=== PATIENT | male | born 1950 | race Caucasian/White ===

== ENCOUNTER 2016-12-17 12:36 | Inpatient (IN) | payer MEDICARE, OTHER ==
[~2016-12-17] VITALS: Ht 167.6 cm; Wt 67.0 kg
[2016-12-17 12:54] VITALS: BP 125/83; PULSE 97; RESP 16; O2SAT 96
--- NOTE | 2016-12-17 12:57 | ED.REPORT ---
HPI-Abd Pain M 40 and Over Date of Service Dec 17, 2016 ED Provider: Aaron Garcia MD A 66 year old male with a history of liver cancer with chronic liver failure presents to the ED complaining of abdominal distention. This distention is due to fluid buildup, which is common for the pt, and is resulting in abdominal pain and shortness of breath. His last paracentesis was three days ago and he had another three days prior to that. Five liters were taken off during each of these sessions, but this was never enough to fully resolve the distention. He denies fever, vomiting, diarrhea or constipation. The pt was instructed by his GI specialist to come to the ED today for another paracentesis. He is scheduled to have a drainage tube placed in one week. Nursing Notes Stated Complaint: STOMACH FLUID BUILD UP Chief Complaint: General Complaint Nursing Notes Reviewed: Yes Allergies: Coded Allergies: Penicillins (Verified Allergy, Severe, Anaphylaxis, 04/17/15) codeine (Verified Allergy, Severe, Anaphylaxis, 04/17/15) Scheduled Furosemide (Furosemide) 40 Mg Tablet 40 MG PO QAM Spironolactone (Spironolactone) 100 Mg Tablet 100 MG PO QAM Scheduled PRN Albuterol Sulfate (Ventolin HFA Inhaler) 200 Puff/18 Gm Inhaler 1-2 PUFFS INHALATION QID PRN PRN For Shortness of Breath General Time Seen by MD: 12:56 Chief Complaint Other (Abdominal distention) Hx Obtained From: Patient Arrived By: Walk-in Sudden in Onset?: No Onset Occurred: 3 days ago Symptom Duration: Since onset Recent Healthcare: No recent doctor visit, No recent hospitalization Similar Sx Previous: No Past Medical History Past Medical History liver cancer with chronic liver failure Past Surgical History paracentesis right leg fracture repair left foot fracture repair Reports: Appendectomy Smoking History Former Smoker Social History Other Social History: Good social support Ambulatory Status Independent Review of Systems Review of Systems Note: abdominal distention Constitutional: Denies: Fever Respiratory: Reports: Shortness of breath, Denies: Non-productive cough Cardiovascular: Denies: Chest pain GI: Reports: Abdominal pain, Denies: Constipation, Diarrhea, Nausea, Vomiting Musculoskeletal: Denies: Back pain, Neck pain Complete sys rev & neg: except as marked. Skin: Denies Rash Physical Exam Initial Vital Signs Vital Signs (First) Date Time Temp Pulse Resp B/P Pulse Ox O2 Delivery O2 Flow Rate FiO2 12/17/16 12:54 36.2 97 16 125/83 96 Room Air Initial VS: Reviewed General/Constitutional: Awake, Alert Respiratory / Chest: Atraumatic, Breath sounds NL, Breath sounds = bilat, No respiratory distress Cardiovascular: Heart rate NL, Regular rhythm, Heart sounds NL Abdomen: Atraumatic, Soft positive fluid wave distended abdomen Back: Atraumatic, Full range of motion Head / Eyes: Atraumatic, Normocephalic, PERRL, EOMI ENT: Atraumatic, Airway patent, Mucous membranes moist Skin: Atraumatic, Color NL, No rash, Warm, Dry Neurologic: Oriented X3, Speech NL, No motor deficits, No sensory deficits Neck: Atraumatic, Supple, Full range of motion Upper Extremity / MS: Atraumatic, Full range of motion Lower Extremity / Pelvis / MS: Atraumatic, Full range of motion Psychiatric: Affect NL, Mood NL Interpretation & Diagnostics Lab Results Interpretation Result Diagram: 12/17/16 1327 12/17/16 1605 Test 12/17/16 13:27 12/17/16 14:18 12/17/16 15:23 White Blood Count 15.4th/mm3 (3.8-10.1) Red Blood Count 4.82mil/mm3 (4.40-5.80) Hemoglobin 16.1g/dL (13.8-17.2) Hematocrit 45.6% (41.0-50.0) Mean Corpuscular Volume 94.6fL (81-100) Mean Corpuscular Hemoglobin 33.4pg (27.0-35.0) Mean Corpuscular Hemoglobin Concent 35.3% (32.0-37.0) Red Cell Distribution Width 14.9% (12.3-15.4) Platelet Count 203bil/L (150-400) Neutrophils (%) (Auto) 84.8% (40-74) Lymphocytes (%) (Auto) 3.0% (14-46) Monocytes (%) (Auto) 10.9% (4-12) Eosinophils (%) (Auto) 0.4% (0-5) Basophils (%) (Auto) 0.1% (0-3) Prothrombin Time 14.4sec (8.1-12.5) Prothromb Time International Ratio 1.34ratio Hold Cho Top Tube Received (Received) Body Fluid Source Peritoneal fluid Body Fluid Color Yellow (Clear) Body Fluid Appearance Hazy Body Fluid WBC 870/mm3 Body Fluid RBC 340/mm3 Body Fluid Polynuclear WBCs 56% Body Fluid Lymphocytes 0% Body Fluid Monocytes 20% Body Fluid Eosinophils 0% Body Fluid Basophils 0% Body Fluid Albumin 0.3g/dL (.) Total Bilirubin 2.8mg/dL (0.0-1.2) Aspartate Amino Transf (AST/SGOT) 104U/L (0-50) Alanine Aminotransferase (ALT/SGPT) 95U/L (0-44) Alkaline Phosphatase 338U/L (25-160) Total Protein 7.2g/dL (6.4-8.4) Albumin 3.0g/dL (3.4-5.0) Lipase 72U/L (13-60) Procedures Paracentesis 13:58 ED physician informed consent provided by pt, time-out performed, hand hygiene observed, sterile stand technique Chlorhexidine Lidocaine 1% RLQ draining clear yellow fluid 4L drained hemodynamically stable condition improved, tolerated procedure well, pt stable Re-Eval/Medical Decision Med Decision/Clinical Course 66-year-old male history of liver cancer and hepatitis C cirrhosis presenting with abdominal pain and ascites. Paracentesis was performed consistent with SBP. Patient will be admitted for IV antibiotics. Discussed with GI Dr. Brennan who agrees with admission with cefotaxime for iv abx. Potassium 5.8, asymptomatic with no EKG changes. Admitted to hospital. Source of Hx: Old records Time of Eval: 13:58 Patient Status: Condition improved Re-Evaluation/Progress Note: Pt rechecked and paracentesis procedure is performed. The pt tolerated well and there are no complications. Time of Eval: 15:14 Patient Status: Condition improved Re-Evaluation/Progress Note: Pt rechecked, who is resting comfortably. The diagnosis and need for admission are discussedd. The pt understands and agrees with the plan. All questions are addressed at this time. Consultation #1: Referral / Consult Name: David Brennan MD Call Returned at: 14:43 Business Services Intern: Agrees with eval, Agrees with plan Note: Consulted with Dr. Brennan, GI, regarding pt's case. Dr. Bernnan recommends GI follow up next week. Consultation #2: Consulted With: Hospitalist Business Services Intern: Agrees with eval, Agrees with plan, Accepts admit Counseled Regarding: Diagnosis, Lab results, Need for admission Discharge & Departure Primary Impression: Spontaneous bacterial peritonitis Additional Impression: Hyperkalemia Disposition: ADMITTED TO HOSPITAL Vital Signs - All Vital Signs Date Time Temp Pulse Resp B/P Pulse Ox O2 Delivery O2 Flow Rate FiO2 12/17/16 12:54 36.2 97 16 125/83 96 Room Air )( All Prior VS Reviewed: Yes Condition: Stable Referrals: Christopher Galeas MD (PCP) Scribe Attestation Portions of this note were transcribed by Laurel Valenzuela. I, Dr. Garcia personally performed the history, physical exam and medical decision-making; I reviewed and confirmed the accuracy of the information in the transcribed note. copies to: Christopher Galeas MD, Ben M MD Dec 17, 2016 12:57 LAUREL VALENZUELA Dec 17, 2016 13:38
[2016-12-17 13:39] LABS: BASOPHILS % (AUTO) 0.1 % (0-3); EOSINOPHILS % (AUTO) 0.4 % (0-5); MONOCYTES % (AUTO) 10.9 % (4-12); Mean Corpuscular Hemoglobin 33.4 pg (27.0-35.0); Mean Corpuscular Volume 94.6 fL (81-100); NEUTROPHILS % (AUTO) 84.8 % (40-74); Platelet Count 203 bil/L (150-400)
[2016-12-17 13:49] LABS: INR 1.34 ratio
[2016-12-17 14:28] LABS: INR 1.34 ratio
[2016-12-17 15:13] LABS: BFWBC 870 /mm3
[2016-12-17 15:17] LABS: MONOCYTES,BODY FLUID 20 %
[2016-12-17 15:18] LABS: OTHER CELLS,BODY FLUID 24
[2016-12-17] MEDS ORDERED: Cefotaxime Inj 2,000 MG in Dextrose 5% 100 ML IV ONE (15:30)
--- NOTE | 2016-12-17 15:34 | PCM.HPMED ---
Subjective Date of Service Dec 17, 2016 Primary Provider: Admitting Physician: Primary Care Physician: Christopher Galeas MD Attending Physician: Chief Complaint: Abdominal pain History of Present Illness: Patient with past medical history hepatocellular carcinoma, ascites, frequent paracentesis presented to the emergency department with abdominal pain.He underwent paracentesis which showed yellow hazy peritoneal fluid. 870 WBC, 56% of the nuclear WBC. Patient was diagnosed with SBP. He was started on cefotaxime IV. GI was consulted by ED physician. Review of Systems: REVIEW OF SYSTEMS: GENERAL: no malaise, no fevers., SEE HPI HEENT: Negative for frequent or significant headaches All other reviewed and negative other than HPI. Allergies Coded Allergies: Penicillins (Verified Allergy, Severe, Anaphylaxis, 04/17/15) codeine (Verified Allergy, Severe, Anaphylaxis, 04/17/15) PMH Hepatocellular carcinoma Surgical History Appendectomy, Colonoscopy Family History DM II, Heart problems Social History Hx Alcohol Use: Yes (quit 32 years ago) Hx Substance Use: No Hx Tobacco Use: Yes (quit 32 years ago ) Smoking Status: Former Smoker Exam Vital Signs Vital Sign - Last Date Time Temp Pulse Resp B/P Pulse Ox O2 Delivery O2 Flow Rate FiO2 12/17/16 12:54 36.2 97 16 125/83 96 Room Air Exam GENERAL: Alert, not in distress, cooperative HEAD: atraumatic, normocephalic, no bruises. EYES: AMNA, EOMI, icteric, able to fully open and close eyelids SKIN: Skin color normal, turgor normal. No visible rashes or lesions. EAR, NOSE, MOUTH, THROAT: Lips, oral mucosa, tongue gums, oropharynx are moist , pink, no lesions. Ears normal appearance, no lesions. NECK: no jugulovenous distention; supple ROM normal. RESPIRATORY: Lungs clear to auscultation. Good diaphragmatic excursion. CARDIAC: normal S1 and S2; no rubs, murmurs, or gallops; regular rate and rhythm ABDOMEN: Abdomen soft, tender. BS normal. No masses or organomegaly. MUSCULOSKELETAL: ROM full, muscles are not tender EXTREMITIES: no pitting edema in LE, no new deformities or skin discoloration. NEURO: Alert, oriented X 3, Sensation grossly intact., Cranial nerves II-XII intact, Grossly normal motor function. PULSES: 2+ radial, 2+ carotid Lab and Diagnostics Result Diagram: 12/17/16 1327 Assessment & Plan This is a 66-year-old male with a past medical history of hepatocellular carcinoma, ascites, frequent paracentesis presented to the emergency department with abdominal pain. She had paracentesis. Total fluid showed white blood cell count about 800. CBC showed leukocytosis. The patient was tachycardic 98 /minute Sepsis present on admission. SBP. Hepatocellular carcinoma. - Stable - GI was consulted by ED physician Plan - Continue with antibiotics, IV fluids Hyperkalemia 5.8 - patient is on Spironolactone , he had high potassium intake recently in form of potato and fruits. - repeat potassium level Hyponatremia 131 - mild - monitor DVT PROPHYLAXIS: Sequential compression devices Code status: Patient would like to be full code Disposition: discharge after patient improves. Plan of care discussed with ED physician; Labs, radiology tests reviewed. Plan of care, medication side effects, home medication, diagnostic procedures and available alternatives were discussed and reviewed with patient. All questions answered. Patient verbalized understanding, approved and agreed to plan of care. VTE Prophylaxis: SCDs Resuscitation Status: CPR: Attempt Resuscitation Anupam Coronado MD Dec 17, 2016 15:34
[2016-12-17] MEDS ORDERED: Alum-Mag Hydrox-Simeth 30 mL Suspension PO PRN (15:40)
[2016-12-17] MEDS ORDERED: 0.9% Sodium Chloride 1,000 ML IV ONE (15:42)
[2016-12-17] MEDS: 0.9% Sodium Chloride 1,000 ML IV SCH (16:05)
[2016-12-17] MEDS ORDERED: Polyethylene Glycol (PEG) 17 Gm Powder PO PRN (16:05)
[2016-12-17] MEDS ORDERED: Cefotaxime Inj 2,000 MG in Dextrose 5% 100 ML IV SCH (16:30)
[2016-12-17 16:35] VITALS: BP 125/74; PULSE 87; RESP 18; O2SAT 97
[2016-12-17 16:45] VITALS: BP 110/78; PULSE 90; RESP 16; O2SAT 98
[2016-12-17] MEDS: cefTRIAXone 2,000 mg/D5W 50 mL IV Minibag Plus IV SCH ×2 (17:00)
[2016-12-17 17:08] LABS: APPEARANCE,URINE CLEAR (CLEAR,HAZY); COLOR,URINE DARK YELLOW (YELLOW); OCCULT BLOOD,URINE NEGATIVE (NEGATIVE); PH,URINE 5.5 (5.0-8.0); UROBILINOGEN,URINE NORMAL (NORMAL)
[2016-12-17 17:16] VITALS: BP 125/74; PULSE 87; RESP 18; O2SAT 97
[2016-12-17] MEDS ORDERED: ALBU18HF INHALATION (17:21)
[2016-12-17] MEDS ORDERED: FURO40TA4 PO (17:21)
[2016-12-17] MEDS ORDERED: SPIR100T3 PO (17:21)
[2016-12-17 20:30] VITALS: BP 110/74; PULSE 86; RESP 16; O2SAT 94
[2016-12-18 00:39] VITALS: BP 119/79; PULSE 89; RESP 16; O2SAT 97
[2016-12-18] MEDS: 0.9% Sodium Chloride 1,000 ML IV SCH (01:42)
--- NOTE | 2016-12-18 05:00 | NUR ---
No Issues to Report Patient slept throughout this shift. No Rx medications ordered and/or given. Remains on IV N/S at 100 Ml/hr. Independent to restroom. No report of pain except that the bed was hard on his back. VSS, No telemetry, RA, Negative SOB and is in good spirits. WCTM
[2016-12-18 06:00] VITALS: BP 125/84; PULSE 82; RESP 16; O2SAT 94
[2016-12-18 08:46] LABS: Mean Corpuscular Hemoglobin 33.2 pg (27.0-35.0)
[2016-12-18 09:00] VITALS: BP 120/84; PULSE 86; RESP 16; O2SAT 96
--- NOTE | 2016-12-18 09:28 | PCM.PNMED ---
Subjective Date of Service Dec 18, 2016 Subjective Patient is in bed, complaining of some mild abdominal pain. Overall feels better. Leukocytosis present but improving Exam Vital Signs Vital Sign - Last Date Time Temp Pulse Resp B/P Pulse Ox O2 Delivery O2 Flow Rate FiO2 12/18/16 09:00 36.4 86 16 120/84 96 Room Air Intake and Output 12/17/16 12/17/16 12/18/16 Cumulative From/Thru 15:00 23:00 07:00 12/17/16 12:54 - 12/18/16 06:00 Intake Total 1600 ml 448 ml 2048 ml Balance 1600 ml 448 ml 2048 ml Intake IV Total 1600 ml 448 ml 2048 ml # Voids 3 3 Exam GENERAL: Alert, not in distress HEAD: atraumatic, normocephalic, no bruises. EYES: EOMI, icteric, able to fully open and close eyelids SKIN: Skin icteric. No visible rashes or lesions. EAR, NOSE, MOUTH, THROAT: Lips, oral mucosa, tongue are moist, pink, no lesions. Ears normal appearance, no lesions. NECK: no jugulovenous distention; supple ROM normal. RESPIRATORY: Lungs clear to auscultation. Good diaphragmatic excursion. CARDIAC: normal S1 and S2; no rubs, murmurs, or gallops; regular rate and rhythm ABDOMEN: Abdomen soft, tender. BS normal. No masses or organomegaly. MUSCULOSKELETAL: ROM full, muscles are not tender EXTREMITIES: no pitting edema in LE, no new deformities or skin discoloration. NEURO: Alert, oriented X 3, Cranial nerves II-XII intact, Grossly normal motor function. PULSES: 2+ radial, 2+ carotid REVIEW OF SYSTEMS: GENERAL: no malaise, no fevers., SEE HPI HEENT: Negative for frequent or significant headaches All other reviewed and negative other than HPI. IVs and Medications Medications Reviewed: Medications were reviewed in detail Lab and Diagnostics Result Diagram: 12/18/16 0820 12/17/16 1606 Assessment & Plan This is a 66-year-old male with a past medical history of hepatocellular carcinoma, ascites, frequent paracentesis presented to the emergency department with abdominal pain. She had paracentesis. Total fluid showed white blood cell count about 800. CBC showed leukocytosis. The patient was tachycardic 98 /minute Sepsis present on admission. SBP. Hepatocellular carcinoma. - Stable - GI was consulted by ED physician Plan - Continue with antibiotics, IV fluids Hyperkalemia - Improving - repeat potassium level , hold spironolactone Hyponatremia - mild - monitor DVT PROPHYLAXIS: Sequential compression devices Code status: Patient would like to be full code Disposition: discharge after patient improves. Plan of care discussed with ED physician; Labs, radiology tests reviewed. Plan of care, diagnostic procedures and available alternatives were discussed and reviewed with patient. All questions answered. Patient verbalized understanding, approved and agreed to plan of care. VTE Prophylaxis: SCDs Resuscitation Status: CPR: Attempt Resuscitation Anupam Coronado MD Dec 18, 2016 09:28
[2016-12-18] MEDS ORDERED: Albumin 25% 25 GM in IV Premix 1 EACH IV ONE (12:05)
--- NOTE | 2016-12-18 12:37 | NUR ---
Social Work: Initial Assessment Data: See initial assessment. Patient is a 66 year old male who was admitted on 12/17/16 for SBP per H&P. Patient's insurance is Medicare and [facility]. Patient's PCP is Christopher Galeas MD. EMR reviewed. SW met with patient to discuss discharge planning. SW role explained. Patient states that he lives alone in [place]. Patient considers his God-daughter Kym to be in main support person. Patient states that his DPOA is his sister Linda Daniels and states that his AD are in the process of being completed. Patient states that he is I at baseline and is able to perform all ADLs and care needs. Patient denies a hx of home health services or SNF. Patient denies having penitentiary care insurance or VA benefits. Patient states that upon discharge his sister Kym will transport him home. SW provided patient with a discharge planning checklist booklet and encouraged to call with any questions or concerns. Phone number provided. SW will continue to follow. Assessment: Patient will likely discharge home when medically stable. Plan: Patient will likely discharge home when medically stable. Transportation will be provided by patient's sister Kym. SW will continue to follow. HIEU Gallagher Addendum: 12/18/16 at 1319 by SARIKA ARNOLD Amended: Links added.
[2016-12-18 13:00] VITALS: BP 116/79; PULSE 81; RESP 16; O2SAT 97
--- NOTE | 2016-12-18 15:48 | NUR ---
Shift Note Patient had continued back pain today, treated with heating pad and ibuprofen. Many family visitors. Dr. Coronado at around noon to answer daughter and patients' questions regarding his stay and next steps for a semi-permanent drainage tube for ascitic drainage. No abdominal discomfort today. Good appetite, up independently, had a shower. Waiting for GI consult for next steps regarding tube placement.
[2016-12-18 18:09] VITALS: BP 107/78; PULSE 88; RESP 16; O2SAT 96
[2016-12-18 20:30] VITALS: BP 119/81; PULSE 80; RESP 16; O2SAT 96
[2016-12-18] MEDS: cefTRIAXone 2,000 mg/D5W 50 mL IV Minibag Plus IV SCH ×2 (21:15)
[2016-12-19] VITALS (7 sets, daily range): BP systolic 106–126; BP diastolic 64–84; PULSE 76–88; RESP 16–18; O2SAT 94–96
--- NOTE | 2016-12-19 01:40 | CONS ---
[address] [address] CONSULTATION REPORT PATIENT: BELKIS RICHARDS : 1950 MR#: [id number] ADMIT: 12/17/2016 JOB ID: [id number] DATE OF SERVICE: 12/18/2016 REQUESTING PROVIDER: Anupam Coronado MD REASON FOR CONSULTATION: SBP. HISTORY OF PRESENT ILLNESS: This is a 66-year-old male with hepatitis C (treated), cirrhosis, who developed hepatocellular carcinoma which was diagnosed in 2013. He was evidently deemed nonsurgical at that time and was treated with Yttrium-90 therapy through the [facility] down at the [facility]. Around August of this year, he was found to have recurrence of hepatoma and experienced further Y-90 therapy. Prior to that time, he never had any difficulty with portal hypertension or ascites. Over the last 3-4 months, he has had increasing difficulty with ascites. He was recently evaluated once again in Oncology Clinic with Dr. Bateman, who started him on some diuretics and referred the patient over to our clinic for further management. The patient did not make his appointment as he was taken to the emergency department on Tuesday by his daughter secondary to increasing amounts of ascites and abdominal pain which had occurred in spite of two prior paracenteses of about 5 L each going back to December 09. He actually called our office on Tuesday morning for advice based on his symptoms. We had routed him through to the emergency department. In the ED, he had a paracentesis that was accomplished and demonstrated a clear-cut case of SBP. Blood cultures have actually even grown out E. coli. He was commenced on Rocephin here in the hospital. The ED indicated to me that Dr. Brennan had been consulted. Dr. Brennan did provide treatment guidance through to the ED, but was not aware that he had actually been formally consulted. I therefore received a call earlier today from Dr. Bo, as he was wondering where the official GI consultation note was. We briefly discussed the patient by telephone and I have recommended that he, in addition to the IV antibiotics, receive a 1.5 g/kg dose of IV albumin, which looks like was accomplished today. Overall, the patient is feeling a little better. He has been afebrile here in the hospital. REVIEW OF SYSTEMS: The patient has lost weight in recent months. Appetite is a little reduced but not much in the way of significant early satiety. Denies any nausea or vomiting. Bowels have been fairly regular apart from a little more loose since starting diuretics in recent weeks. He has not maintained a low-sodium diet. He has continued to add salt to food. He denies any mental confusion or symptoms of hepatic encephalopathy. There have been no symptoms of GI bleeding. I was able to speak by telephone with the patient's daughter, Kym, and her main concern was the increase in difficulty breathing that her dad would recurrently get with accumulation of the ascites. She indicated they were wondering about a PleurX catheter. Otherwise, his review is negative at this time. ALLERGIES: PCN and Codeine MEDICATIONS: Lasix, spironolactone, Ventolin. PAST MEDICAL HISTORY: Colon polyps, hemorrhoids, treated hepatitis C, cirrhosis, hepatocellular carcinoma. PAST SURGICAL HISTORY: Appendectomy. FAMILY HISTORY: Noncontributory. 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 He denies any alcohol or tobacco use. His daughter, Kym, is in town from [place]. PHYSICAL EXAMINATION: Skin warm and dry. Alert, oriented, appropriate, cooperative. No asterixis. Heart regular. No significant lower extremity peripheral pitting edema. Lungs clear bilaterally. Good respiratory movement, more so when he is in a seated position. Abdomen is full. I did not appreciate any guarding at present. He clearly has had recurrence of large volume of ascites. IMAGING: CT chest, abdomen, and pelvis on December 07 is noted. He did not have any significant pleural effusions at that time. He did have what was described as pulmonary emphysema. Cirrhosis with stable hepatocellular carcinoma compared to his prior CT was commented on. He had a marked amount of ascites and he had gallstones. LABORATORY DATA: White count was initially 15.4 with left shift. It is down to 12.7 today. Hematocrit 43.6, platelets were 152. His INR was 1.34 yesterday. Albumin was 3.0, lipase 72, bilirubin 2.8, AST 104, ALT 95, alk phos 338. Sodium 131, potassium 5.8, chloride 92, bicarb 21, BUN 32, creatinine 1.14, glucose 129, calcium 9.5. Today, creatinine is down to 0.85. Sodium is still 131. Peritoneal fluid is as described above. Urinalysis was unremarkable. Blood cultures positive for E. coli. ASSESSMENT AND RECOMMENDATIONS: This is a 66-year-old male with hepatitis C related cirrhosis, complicated by inoperable hepatocellular carcinoma that has recurred since the original diagnosis in 2013. He has developed significant portal hypertension and now has developed spontaneous bacterial peritonitis. It is difficult to determine whether infection was seated by the prior two paracenteses or not. At any rate, I have recommended cefotaxime 2 g every 8 hours. I would recommend the ceftriaxone be switched over to the cefotaxime as ceftriaxone has an increased risk for developing biliary sludge. In that the patient already has gallstones, I do not think this is a great antibiotic in his case. He has received the IV albumin, which based on his initial BUN and creatinine, would be quite appropriate. I would recommend a 1 g/kg dose of albumin be given on Tuesday. He will need five total days of IV antibiotic therapy. I have discontinued the ibuprofen. Not only can Y-90 treatment sometimes create significant portal hypertension, as seems to be the case in the patient, there have been cases of quite significant gastroduodenal ulceration, and therefore, nonsteroidal anti-inflammatory drugs (NSAIDs) would not be a great planned in his situation here. I would recommend he be compliant with a 2 g sodium diet. This is not easy to do in the hospital, unfortunately, but I have educated the patient and his daughter on the importance of this diet and written orders to nursing to help with compliance. It is great that his creatinine has come down slightly. His ascites is rather large again, and I think his diuretics ought to be restarted. I would recommend another therapeutic paracentesis tomorrow quite possibly. Daily ins and outs and weights should be followed. He should also have a daily CBC, CMP and a PT/INR to follow his MELD score. His MELD score at presentation was 20. For the time being. I would not be in favor of the PleurX catheter. I think that the patient would need to definitely demonstrate failure of conventional therapy, which would include dietary sodium restriction as outlined above, plus escalated diuretic dosing if need be. Even in that scenario, I would still have him follow up with his Interventional Radiologist in [place] to discuss the feasibility of a transjugular intrahepatic portosystemic shunt (TIPS) in that scenario. Hepatoma is considered a relative contraindication, but typically more so when it is a centralized tumor. I would like to see him on PPI prophylaxis here in the hospital. Long-term, he will be indicated for a single double-strength Bactrim daily as prophylaxis against spontaneous bacterial peritonitis (SBP) when ultimately discharged. Dr. Pedraza will be fraud prevention analyst for the GI service tomorrow, Tuesday. I plan to pick the patient's case back up again on Tuesday. My cell phone is [phone] if there are any questions or concerns. JOHNNY
--- NOTE | 2016-12-19 04:41 | NUR ---
Doctor Visit Dr. Lowry came by last night to talk to patent regarding the patients questions and concerns. discontinued Motrin because he did fell the patient should be taking it with his Dx. Also ordered a no more that 2 Grams of sodium QD. Plus update the MAR with patients Rx medications. Pt. to continue on IV ABO. Pt. VSS, RA, SL, Independent to restroom and in good spirits. TM
[2016-12-19] MEDS: Pantoprazole 20 mg ER24 Tablet PO SCH (08:13)
[2016-12-19 08:28] LABS: Mean Corpuscular Hemoglobin 33.2 pg (27.0-35.0); Mean Corpuscular Volume 94.2 fL (81-100)
--- NOTE | 2016-12-19 11:09 | NUR ---
Case Management: Imm given and explained to pt and daughter, Kym. Sara HOLT, RN
--- NOTE | 2016-12-19 11:37 | NUR ---
Home Med/Inhaler Patient and patient's daughter made RN aware that he normally uses an inhaler at home that helps with his "clogged ear". I told them I would add this medication to his home medication list and speak with Dr. Coronado about adding this medication. Spoke with Dr. Coronado about adding this medication, MD stated being aware the patient does use the inhaler and stated this could be added if it helps with patient's "clogged ear". Verbal order given.
[2016-12-19] MEDS ORDERED: Albuterol 2.5 mg/3 mL Inhalation Solution NEB ONE (12:37)
--- NOTE | 2016-12-19 12:58 | PCM.PNMED ---
Subjective Date of Service Dec 19, 2016 Subjective Patient feels the same today. Complaining of distended abdomen. Patient does not want to have paracentesis today he would like to have it tomorrow. Exam Vital Signs Vital Sign - Last Date Time Temp Pulse Resp B/P Pulse Ox O2 Delivery O2 Flow Rate FiO2 12/19/16 12:47 88 18 96 Room Air 12/19/16 10:15 36.5 124/84 Intake and Output 12/18/16 12/18/16 12/19/16 Cumulative From/Thru 15:00 23:00 07:00 12/17/16 12:54 - 12/19/16 06:15 Intake Total 50 ml 400 ml 2498 ml Balance 50 ml 400 ml 2498 ml Intake Oral 400 ml 400 ml IV Total 50 ml 2098 ml # Voids 3 2 2 10 # Bowel Movements 1 1 Exam GENERAL: Alert, not in distress HEAD: normocephalic, no bruises. EYES: EOMI, anicteric, able to fully open and close eyelids SKIN: Skin color normal, turgor normal. No visible rashes EAR, NOSE, MOUTH, THROAT: Lips, oral mucosa, tongue are moist, pink, no lesions. Ears normal appearance, no lesions. NECK: no jugulovenous distention; supple ROM normal. RESPIRATORY: Lungs clear to auscultation. Good diaphragmatic excursion. CARDIAC: normal S1 and S2; no rubs, murmurs, or gallops; regular rate and rhythm ABDOMEN: Abdomen soft, non-tender, distended. BS normal. MUSCULOSKELETAL: ROM full, muscles are not tender EXTREMITIES: no pitting edema in LE, no new deformities or skin discoloration. NEURO: Alert, oriented X 3, Sensation grossly intact., Cranial nerves II-XII intact, Grossly normal motor function. PULSES: 2+ radial, 2+ carotid REVIEW OF SYSTEMS: GENERAL: no malaise, no fevers., SEE HPI HEENT: Negative for frequent or significant headaches All other reviewed and negative other than HPI. Lab and Diagnostics Result Diagram: 12/19/1680412/19/16920 Assessment & Plan This is a 66-year-old male with a past medical history of hepatocellular carcinoma, ascites, frequent paracentesis presented to the emergency department with abdominal pain. She had paracentesis. Total fluid showed white blood cell count about 800. CBC showed leukocytosis. The patient was tachycardic 98 /minute Sepsis present on admission. SBP. Hepatocellular carcinoma. - Improving - GI was consulted by ED physician, recommended to continue with cefotaxime, albumin, paracentesis, no NSAIDs, resume Lasix and spironolactone, low-salt diet Plan - Continue with IV antibiotics, albumin as needed - Monitor electrolytes for hyperkalemia - Paracentesis as needed Hyperkalemia - Improved - Monitor this patient is again back on spironolactone Hyponatremia - Worsening - monitor DVT PROPHYLAXIS: Sequential compression devices Code status: Patient would like to be full code Disposition: discharge after patient improves. Plan of care discussed with treatment team; Labs, radiology tests reviewed. Plan of care, diagnostic procedures and available alternatives were discussed and reviewed with patient. All questions answered. Patient verbalized understanding, approved and agreed to plan of care. VTE Prophylaxis: SCDs Resuscitation Status: CPR: Attempt Resuscitation Anupam Coronado MD Dec 19, 2016 12:58
--- NOTE | 2016-12-19 13:10 | NUR ---
Ear Congestion Contacted Dr. Coronado via [employer] page, informed him patient continues to report ear congestion. Patient now reports inhaler and nebulizer has not worked, though inhaler was working earlier to clear the congestion per patient. This RN asked MD if an oral decongestant would be appropriate for this patient. Awaiting MD response.
--- NOTE | 2016-12-19 15:51 | PCM.PNMED ---
Subjective Date of Service Dec 19, 2016 Subjective no complaints other than abdominal bloating no abdominal pain, nausea or vomiting mild shortness of breath with ambulation Exam Vital Signs Vital Sign - Last Date Time Temp Pulse Resp B/P Pulse Ox O2 Delivery O2 Flow Rate FiO2 12/19/16 14:03 36.4 76 16 111/78 96 Room Air Intake and Output 12/18/16 12/18/16 12/19/16 Cumulative From/Thru 15:00 23:00 07:00 12/17/16 12:54 - 12/19/16 06:15 Intake Total 50 ml 400 ml 2498 ml Balance 50 ml 400 ml 2498 ml Intake Oral 400 ml 400 ml IV Total 50 ml 2098 ml # Voids 3 2 2 10 # Bowel Movements 1 1 Exam GEN- appropriate, no distress, no asterixis HEENT-no icterus Resp-decreased breath sounds in bases [id number] abdomen-distended, fluid wave present, non tender ext- no edema Lab and Diagnostics Result Diagram: 12/19/16 0805 12/19/16 0921 Assessment & Plan SBP with Bacteremia -continue IV Antibiotics -repeat blood cultures -repeat paracentesis with cell count and differential, culture and total protein -pleae give IV albumin tomorrow after paracentesis Leukocytosis -secondary to above -continue to follow Ascites - continue diuretics at this dose as long as BMP stable -large volume paracentesis tomorrow Hepatocellular carcinoma/ Decompensated Cirrhosis -Follow up with Oncology Dr Bateman as outpatient -unclear if patient was not a candidate for Liver transplant as I do not have his oncologists notes to review -patient states Liver transplant was never discussed with him by either his oncologist or by - will try to obtain records from his oncologist. Hyperkalemia - Improved - follow daily Hyponatremia - Worsening - fluid restriction -follow daily VTE Prophylaxis: SCDs Resuscitation Status: CPR: Attempt Resuscitation Adalid Pedraza MD Dec 19, 2016 15:51
[2016-12-19] MEDS ORDERED: Albuterol 2.5 mg/3 mL Inhalation Solution NEB PRN (16:00)
[2016-12-19] MEDS: Cefotaxime Inj 2,000 MG in Dextrose 5% 100 ML IV SCH (16:13)
--- NOTE | 2016-12-19 18:46 | NUR ---
Shift Note Patient has not reported any pain during this shift. Patient's daughter has been making patient Vegan meals which are also low in sodium to comply with patient's diet. Patient has not had much intake this shift and has not had much output. RN, patient and patient's daughter discussed keeping up with intake/output more closely, as patient has forgotten to use the urinal a couple of times this shift. Patient agreed to use the urinal and agreed to drink from his 'camel back' and his liter water bottle so the intake could be monitored closer. Patient requested some time undisturbed this evening in order to get some sleep. Patient is supposed to have paracentesis tomorrow. Patient's antibiotic has been changed and it will be given q 8 h now instead of q 24 h.
[2016-12-20] VITALS (8 sets, daily range): BP systolic 116–131; BP diastolic 74–80; PULSE 79–88; RESP 16–22; O2SAT 94–96
[2016-12-20] MEDS: Cefotaxime Inj 2,000 MG in Dextrose 5% 100 ML IV SCH ×3 (00:33→17:53)
--- NOTE | 2016-12-20 04:19 | NUR ---
Pain Management Pt. complained of sever back pain and the K-pad wasn't helping as it had been. On-Call was paged and he ordered one time dose 650 Mg APAP which helped. VSS No other issues to report. WCTM
[2016-12-20] MEDS: Ondansetron 2 mg/mL 2 mL Inj IVPUSH PRN ×2 (05:58→10:55)
[2016-12-20] MEDS: Pantoprazole 20 mg ER24 Tablet PO SCH (08:29)
[2016-12-20] MEDS ORDERED: Albumin 25% 25 GM in IV Premix 1 EACH IV ONE (08:45)
[2016-12-20 09:30] LABS: BASOPHILS % (AUTO) 0.2 % (0-3); EOSINOPHILS % (AUTO) 1.2 % (0-5); MONOCYTES % (AUTO) 7.9 % (4-12); Mean Corpuscular Hemoglobin 33.1 pg (27.0-35.0); NEUTROPHILS % (AUTO) 85.3 % (40-74); Platelet Count 211 bil/L (150-400)
[2016-12-20] MEDS ORDERED: ALBUMIN IV ONE (09:45)
[2016-12-20] MEDS ORDERED: Insulin LISPRO 300 Unit/3 mL Inj IV ONE (10:50)
[2016-12-20] MEDS ORDERED: Dextrose 10% 250 ML IV ONE (11:00)
--- NOTE | 2016-12-20 11:12 | PCM.PNMED ---
Subjective Date of Service Dec 20, 2016 Subjective Gastroenterology Progress Note Mr. Kostas Winchester is a 66-year-old male with hepatitis C related cirrhosis, complicated by inoperable hepatocellular carcinoma that has recurred since the original diagnosis in 2013. He has developed significant portal hypertension and is now currently being treated for spontaneous bacterial peritonitis. Mr. Winchester was seen while sitting on the edge of the bed and reports new onset sharp, deep, lower back bilaterally that does not radiate and is only relieved by "bending over and touching his toes." He also reports mild nausea without vomiting. He reports 2 loose stools per day and continues to pass flatus. He does not recall the paracentesis in the [facility] ED, which was 12/17. He denies fever, chills, dizziness, syncope, vomiting, chest pain, abdominal pain (he believes his abdomen is unchanged the last 2 days.), dysuria, constipation, diarrhea. Exam Vital Signs Vital Sign - Last Date Time Temp Pulse Resp B/P Pulse Ox O2 Delivery O2 Flow Rate FiO2 12/20/16 08:36 36.4 81 22 131/79 95 Room Air Intake and Output 12/19/16 12/19/16 12/20/16 Cumulative From/Thru 15:00 23:00 07:00 12/17/16 12:54 - 12/19/16 22:00 Intake Total 1030 ml 3528 ml Output Total 250 ml 250 ml Balance 780 ml 3278 ml Intake Oral 920 ml 1320 ml IV Total 110 ml 2208 ml Output Urine Total 250 ml 250 ml # Voids 3 13 # Bowel Movements 1 Exam General: Mild distress, well-developed, well-nourished, appropriately interactive, HEENT: Normocephalic, atraumatic. External ears without defect. Pupils equal, round, and reactive to light and accommodation. Anicteric sclerae, moist conjunctivae, and no lid lag. Oropharynx free of erythema and cobble stoning with moist mucosa. Neck: Supple with full range of motion. No jugular venous distension. No bruits. No lymphadenopathy or thyromegaly. Cardiovascular: Regular rate and rhythm with no murmurs, rubs, or gallops appreciated Pulmonary: Clear to auscultation bilaterally with no crackles, wheezes, or rhonchi. Decreased respiratory effort likely due to splinting while sitting at the edge of the bed. Abdomen: Bowel tones present. Soft when lying flat, nontender, distended abdomen with fluid wave present, No hepatosplenomegaly or masses appreciated. Extremities: No clubbing, cyanosis, edema, or lymphadenopathy appreciated. Skin: Normal temperature, turgor, and texture; no rash, ulcers, or subcutaneous nodules appreciated. Neurological: Cranial nerves grossly intact. Normal muscle strength, tone, and bulk. Reflexes, coordination, and sensory function within normal limits. No known gait impairment. Psychiatric: depressed mood and affect. Alert and oriented to person, place, and time, however does display some memory loss from admission. IVs and Medications Medications Reviewed: Medications were reviewed in detail Lab and Diagnostics Result Diagram: 12/20/1690912/20/16909 Assessment & Plan SBP with Bacteremia - Continue IV Antibiotics for a total of 5 day course, will determine if patient need chronic prophylactic antibiotics. Antibiotic of choice - Repeat blood cultures pending - Repeat paracentesis not preformed, fluid on US was unchanged from admit follow prior 4L paracentesis. - IV albumin 1G/Kg today. Leukocytosis, improving - Secondary to above - Continue to follow Possible Hepatic encephalopathy, - Titrate Lactulose for 2-3 bowel movements per day. Will monitor for improvement of memory and cognitive function. Ascites - Continue diuretics at this dose as long as BMP stable - Large volume paracentesis not completed today, not enough fluid to tap according to US. - KUB ordered today along with intra-abdominal pressures. Hepatocellular carcinoma/ Decompensated Cirrhosis - Follow up with Oncology Dr Bateman as outpatient - Unclear if patient was not a candidate for Liver transplant as I do not have his oncologists notes to review - Patient states Liver transplant was never discussed with him by either his oncologist or by , Will try to obtain records from his oncologist. - MELD on admission was ~20.5, currently ~ 23.4 Hyperkalemia - worsened today. - Kayexelalate one time. - Hold diuretics. - follow daily Hyponatremia - Worsening - Start fluid restriction to 1 L fluid by PO today. Repeat BMP later this afternoon. Pain Evaluation: Adequate Pain Control VTE Prophylaxis: SCDs Resuscitation Status: CPR: Attempt Resuscitation Attending Statement Patient seen and examined. Agree with assessment and plan as described by Dr Mares. No pain at present. Rather shocking with no evidence of bowel obstruction at KUB that insufficient fluid was seen at u/s for repeat tap. I'd like to see how he does holding off on the diuretics with the drop in sodium and bump in K and Cr. Agree with the dose of albumin today. Will see how his labs look in the morning. Then may add back in diuretics at lower dosing - ie perhaps drop the spironolactone dose in half. Currently abdomen does appear and feel full of ascitic fluid but is not tense and he is not experiencing pain with exam. BRENDA MARES DO Dec 20, 2016 11:12 Jose Cruz Lowry MD Dec 20, 2016 18:47
[2016-12-20] MEDS: Lactulose 20 Gm/30 mL 30 mL Syrup PO SCH ×3 (11:24→21:20)
[2016-12-20] MEDS: INSULIN HUMAN REGULAR IV SCH ×2 (11:50→12:11)
--- NOTE | 2016-12-20 13:55 | PCM.PNMED ---
Subjective Date of Service Dec 20, 2016 Subjective Patient is in the bed, complaining of a distended abdomen, abdominal and back pain secondary to distention. Potassium is elevated today, I will stop spironolactone. Creatinine and BUN are also a bit elevated today, sodium is trending down. IR physician evaluated the patient , no need for paracentesis today. Plan of care was discussed in details with GI and IR. Exam Vital Signs Vital Sign - Last Date Time Temp Pulse Resp B/P Pulse Ox O2 Delivery O2 Flow Rate FiO2 12/20/16 12:36 36.3 88 20 124/75 95 Room Air Intake and Output 12/19/16 12/19/16 12/20/16 Cumulative From/Thru 15:00 23:00 07:00 12/17/16 12:54 - 12/19/16 22:00 Intake Total 1030 ml 3528 ml Output Total 250 ml 250 ml Balance 780 ml 3278 ml Intake Oral 920 ml 1320 ml IV Total 110 ml 2208 ml Output Urine Total 250 ml 250 ml # Voids 3 13 # Bowel Movements 1 Exam GENERAL: Alert, mild distress, cooperative HEAD: atraumatic, normocephalic, no bruises. EYES: EOMI, anicteric, able to fully open and close eyelids SKIN: Skin color normal, turgor normal. No visible rashes or lesions. EAR, NOSE, MOUTH, THROAT: Lips, oral mucosa, tongue gums, oropharynx are moist , pink, no lesions. Ears normal appearance, no lesions. NECK: no jugulovenous distention; supple ROM normal. RESPIRATORY: Lungs clear to auscultation. Good diaphragmatic excursion. CARDIAC: normal S1 and S2; no rubs, murmurs, or gallops; regular rate and rhythm ABDOMEN: Abdomen soft, tender, distended. BS normal. No masses or organomegaly. MUSCULOSKELETAL: ROM full, muscles are not tender EXTREMITIES: no pitting edema in LE, no new deformities or skin discoloration. NEURO: Alert, oriented X 3, Sensation grossly intact., Cranial nerves II-XII intact, Grossly normal motor function. PULSES: 2+ radial, 2+ carotid REVIEW OF SYSTEMS: GENERAL: no malaise, no fevers., SEE HPI HEENT: Negative for frequent or significant headaches All other reviewed and negative other than HPI. IVs and Medications Medications Reviewed: Medications were reviewed in detail Lab and Diagnostics Result Diagram: 12/20/16 0910 12/20/16 0910 Assessment & Plan SBP with Bacteremia. Ascites. Hepatocellular carcinoma/ Decompensated Cirrhosis - stable - GI following, plan of are discussed Plan -continue IV Antibiotics -repeat blood cultures pending -repeat paracentesis as needed - IV albumin - hold diuretics for now (increaed BUN, low sodium) Hyperkalemia - worsened Plan - Kayexylate PO - Insulin and D 10 IV - monitor blood sugar q1hX5 - repeat potassium level in PM - hold Spironolactone Hyponatremia - Worsening - fluid restriction - follow daily DVT PROPHYLAXIS: SCD Code status:full code Disposition: discharge after patient improves. Plan of care discussed with IR and GI physicians; Labs, radiology tests reviewed. Plan of care, medication side effects, home medication, diagnostic procedures and available alternatives were discussed and reviewed with patient/family. All questions answered. Patient/family verbalized understanding, approved and agreed to plan of care. VTE Prophylaxis: SCDs Resuscitation Status: CPR: Attempt Resuscitation Anupam Coronado MD Dec 20, 2016 13:55
--- NOTE | 2016-12-20 16:59 | DRSVH ---
PROCEDURE: X-RAY KUB ([id number]) INDICATIONS: ascites TECHNIQUE: One view of the abdomen acquired. COMPARISON: [facility], , PARACENTESIS, 12/14/2016, 15:27. FINDINGS: Surgical changes and devices: None. Bowel: Bowel gas pattern is normal. Soft tissues: No suspicious abdominal calcifications. Visualized solid organ contours appear normal in size. Bones: No suspicious bony lesions. IMPRESSION: No obstruction identified. Dictated by: Joon MEI Interpreted: Mabel Melgar MD on 12/20/2016 at 12:06 Approved by: Mabel Melgar M.D. on 12/20/2016 at 16:57
--- NOTE | 2016-12-20 17:27 | NUR ---
pain, procedures, hyperkalemia pt. c/o 10/10 back pain this am; k-pad and roxicodone not helping; MD aware. pt. had abdominal ultrasound in room x2, second time with radiologist at bedside assessing fluid volume; KUB done in room; refused IAP; radiologist did not want paracentesis done today; will reevaluate tomorrow, 12/21. Pt. abd taught, distended, and painful while sitting/standing; softer and more comfortable while in bed. Hyperkalemic K+ 5.8; insulin 5 units given IV, infused D10 250 ml bag, then gave second dose of insulin 5 units IV. BG's stable throughout afternoon/evening. Kayexalate x1 given. Pt. alert and oriented but forgetful, unable to remember last paracentesis on Tuesday per GI dr; lactulose ordered, to titrated 2-3 bm's/day; no bm at this time. Pt. states this evening pain is only 2/10; back pain seems to have almost resolved without further intervention; pt. ambulating in room and hallway with daughter.
[2016-12-21] VITALS (10 sets, daily range): BP systolic 122–127; BP diastolic 73–80; PULSE 77–96; RESP 16–20; O2SAT 94–100
[2016-12-21] MEDS: Cefotaxime Inj 2,000 MG in Dextrose 5% 100 ML IV SCH ×4 (00:32→23:35)
--- NOTE | 2016-12-21 06:04 | NUR ---
Pain Pt experiencing 10/10 pain in back, unable to get comfortable in bed, chose to recline in chair. KPAD and Roxicodone offering very little relief. After some time in the chair, he was able to rest and pain subsided.
[2016-12-21] MEDS: Lactulose 20 Gm/30 mL 30 mL Syrup PO SCH ×3 (09:29→20:55)
[2016-12-21] MEDS: Pantoprazole 20 mg ER24 Tablet PO SCH (09:29)
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
--- NOTE | 2016-12-21 12:45 | PCM.PNMED ---
Subjective Date of Service Dec 21, 2016 Subjective Patient is complaining of mild abdominal pain and distention. Last bowel movement before yesterday. He is on lactulose now. KUB results reviewed, no acute pathology identified. Exam Vital Signs Vital Sign - Last Date Time Temp Pulse Resp B/P Pulse Ox O2 Delivery O2 Flow Rate FiO2 12/21/16 09:25 77 12/21/16 08:30 36.4 16 125/80 95 Room Air Intake and Output 12/20/16 12/20/16 12/21/16 Cumulative From/Thru 15:00 23:00 07:00 12/17/16 12:54 - 12/21/16 06:27 Intake Total 1482 ml 603 ml 5613 ml Output Total 250 ml Balance 1482 ml 603 ml 5363 ml Intake Oral 650 ml 500 ml 2470 ml IV Total 832 ml 103 ml 3143 ml Output Urine Total 250 ml # Voids 3 3 19 # Bowel Movements 1 Exam GENERAL: Alert, mild distress, in bed HEAD: atraumatic, normocephalic, no bruises. EYES: EOMI, anicteric, SKIN: Skin color normal, turgor normal. No visible rashes or lesions. EAR, NOSE, MOUTH, THROAT: Lips, oral mucosa, tongue are moist, pink, no lesions. NECK: no jugulovenous distention; supple ROM normal. RESPIRATORY: Lungs clear to auscultation. Good diaphragmatic excursion. CARDIAC: normal S1 and S2; no rubs, murmurs, or gallops; regular rate and rhythm ABDOMEN: Abdomen soft, tender, distended. BS normal. MUSCULOSKELETAL: ROM full, muscles are not tender EXTREMITIES: no pitting edema in LE, no new deformities or skin discoloration. NEURO: Alert, oriented X 3, Cranial nerves II-XII intact, Grossly normal motor function. PULSES: 2+ radial, 2+ carotid REVIEW OF SYSTEMS: GENERAL: no malaise, no fevers., SEE HPI HEENT: Negative for frequent or significant headaches All other reviewed and negative other than HPI. IVs and Medications Medications Reviewed: Medications were reviewed in detail Lab and Diagnostics Result Diagram: 12/20/16 0910 12/21/16 0840 Assessment & Plan Mr. Kostas Winchester is a 66-year-old male with hepatitis C related cirrhosis, complicated by inoperable hepatocellular carcinoma that has recurred since the original diagnosis in 2013. He has developed significant portal hypertension and is now currently being treated for spontaneous bacterial peritonitis. SBP with Bacteremia. Ascites. Hepatocellular carcinoma/ Decompensated Cirrhosis - stable - GI following Plan -continue IV Antibiotics, today is day 5 -repeat blood cultures - no growth -repeat paracentesis as needed - IV albumin prn - resume Lasix Hyperkalemia - resoloved after Kayexylate PO + Insulin and D 10 IV Plan - hold Spironolactone for now Hyponatremia - mild improvement today - fluid restriction - follow daily DVT PROPHYLAXIS: SCD Code status: full code Disposition: discharge after patient improves. Plan of care discussed with IR and GI physicians; Labs, radiology tests reviewed. Plan of care, diagnostic procedures and available alternatives were discussed and reviewed with patient/family. All questions answered. Patient/family verbalized understanding, approved and agreed to plan of care. VTE Prophylaxis: SCDs Resuscitation Status: CPR: Attempt Resuscitation Anupam Coronado MD Dec 21, 2016 12:45
--- NOTE | 2016-12-21 13:15 | NUR ---
NUTRITION ASSESSMENT: ASSESS: Pt is a 66yo M admitted for SBP. He is s/p paracentesis 12/17 and is likely to have a repeat paracentesis. GI is following. Pt continues to have a distended abdomen. He was on a renal diet with a 1 L fluid restriction but GI has discontinued the fluid restriction and changed his diet to Full Liquid to advance as tolerated. Pt had 2 episodes of emesis this am. Overall he has been tolerating PO well at 25-100% of meals. Pt's last recorded BM was 12/18. PMHX: Hepatocellular ca, Hep C, cirrhosis LABS: Reviewed. Na 130, Cl 93, Bun 40, Glu 121, T.bili 2.7, AST 72, ALT 63, Alk phos 277, Alb 4.0 MEDS: Reviewed. Lactulose, zofran GI: BMx1 12/18 SKIN: no major issues CURRENT WTS: 66.1kg, BMI 23.5kg/m2, admit wt 65.9kg DIET: Full Liquid, PO 25-100% EST. NEEDS: Liver Disease Kcals: 1985-2315kcal/day (30-35kcal/kg) Pro: 80-100g/day (1.2-1.5g/kg) NUTRITION DIAGNOSIS: 1.) Variable PO intake related to liver disease as evidence by PO ranging from 25-100% and ascites NUTRITION INTERVENTION: 1.) Will add Ensure on L tray to help supplement PO intake 2.) Recommend advance diet as tolerated/when medically appropriate MONITOR / EVAL: PO, diet advance, GI/BM, wt, labs, POC, nutrition status. Will continue to monitor per moderate nutrition risk guidelines
--- NOTE | 2016-12-21 17:07 | DRSVH ---
PROCEDURE: X-RAY ACUTE ABDOMINAL SERIES ([id number]) INDICATIONS: ASCITES, VOMITING. TECHNIQUE: One view chest and 2 views of the abdomen were acquired. COMPARISON: [facility], CR, XR KUB, 12/20/2016, 11:20. [facility], CR, CHEST 2 VIEW , 02/25/2016, 13:21. FINDINGS: Surgical Changes and Devices: None. Chest: Lungs are clear. Heart size is normal. No pleural effusions. No pneumoperitoneum. Abdomen: Bowel gas pattern is normal. No suspicious calcifications. Visualized solid organ contour s appear normal. Bones: No suspicious bony lesions. IMPRESSION: Normal bowel gas pattern. Increased opacity noted throughout the abdomen, likely associ ated with scattered ascites. Dictated by: Joon MEI Interpreted: Pedro Pablo Del Rio MD on 12/21/2016 at 16:45 Transcribed by: GREGOR on 12/21/2016 at 20:05 Approved by: Pedro Pablo Del Rio M.D. on 12/22/2016 at 17:17
--- NOTE | 2016-12-21 17:15 | NUR ---
Shift Note: Patient vomited up his entire breakfast, but felt much better after that and was able to eat lunch. Was very mobile today, up and walking quite a bit. Got xrays, but abdominal ultrasound not completed. No BM today, giving additional bowel regime medications this evening. Daughter at bs remains a great support.
--- NOTE | 2016-12-21 21:25 | NUR ---
FEBRILE Pt at approx. 2114 had fever of 39.3 C. Pt denied symptoms, not diaphoretic. Other VS WNL, see EMR. No Tylenol ordered per liver status. Pt has had blood cultures drawn and growing, see EMR. Paged Dr. Meléndez "FYI, temp of 39.3, other VS WNL, no Tylenol ordered r/t liver, blood cultures already growing." Awaiting reply.
[2016-12-21] MEDS ORDERED: 0.9% Sodium Chloride 250 ML ONE (23:29)
[2016-12-22 04:39] VITALS: BP 135/89; PULSE 86; RESP 20; O2SAT 95
[2016-12-22 07:12] LABS: INR 1.41 ratio
[2016-12-22 07:20] VITALS: BP 123/83; PULSE 84; RESP 18; O2SAT 96
[2016-12-22 07:46] LABS: Mean Corpuscular Hemoglobin 33.6 pg (27.0-35.0)
[2016-12-22] MEDS: Pantoprazole 20 mg ER24 Tablet PO SCH (08:18)
[2016-12-22] MEDS: Lactulose 20 Gm/30 mL 30 mL Syrup PO SCH ×2 (08:18→14:41)
[2016-12-22] MEDS: Cefotaxime Inj 2,000 MG in Dextrose 5% 100 ML IV SCH ×2 (08:19→17:01)
[2016-12-22 09:40] VITALS: PULSE 86
--- NOTE | 2016-12-22 11:07 | NUR ---
Social Work: PAMELA SW visited patient's room to deliver PAMELA. PAMELA has been signed by patient. HIEU Gallagher
[2016-12-22 12:45] VITALS: BP 132/90; PULSE 78; RESP 18; O2SAT 98
--- NOTE | 2016-12-22 13:43 | PCM.PNMED ---
Subjective Date of Service Dec 22, 2016 Subjective Mr. Kostas Winchester is a 66-year-old male with hepatitis C related cirrhosis, complicated by inoperable hepatocellular carcinoma that has recurred since the original diagnosis in 2013. He has developed significant portal hypertension and is now currently being treated for spontaneous bacterial peritonitis. Mr. Winchester was seen at bedside, with his daughter Kym in the room. He reports no more episodes of nausea or vomiting. He no longer endorses bilateral lower back pain, and reports his abdomen feels about the same as the day before. He reports 1 "good sized" bowel movement today. He denies fever (Although per nursing he had a temp of 39.2), chills, dizziness, syncope, chest pain, shortness of breath,abdominal pain, dysuria, diarrhea. Exam Vital Signs Vital Sign - Last Date Time Temp Pulse Resp B/P Pulse Ox O2 Delivery O2 Flow Rate FiO2 12/22/16 12:45 36.4 78 18 132/90 98 Room Air Intake and Output 12/21/16 12/21/16 12/22/16 Cumulative From/Thru 15:00 23:00 07:00 12/17/16 12:54 - 12/22/16 04:39 Intake Total 1000 ml 6613 ml Output Total 150 ml 400 ml Balance 850 ml 6213 ml Intake Oral 600 ml 3070 ml IV Total 400 ml 3543 ml Output Urine Total 150 ml 400 ml # Voids 19 # Bowel Movements 1 Exam General: Mild distress, well-developed, well-nourished, appropriately interactive, HEENT: Normocephalic, atraumatic. External ears without defect. Pupils equal, round, and reactive to light and accommodation. Anicteric sclerae, moist conjunctivae, and no lid lag. Oropharynx free of erythema and cobble stoning with moist mucosa. Neck: Supple with full range of motion. No jugular venous distension. No bruits. No lymphadenopathy or thyromegaly. Cardiovascular: Regular rate and rhythm with no murmurs, rubs, or gallops appreciated Pulmonary: Clear to auscultation bilaterally with no crackles, wheezes, or rhonchi. Decreased respiratory effort likely due to splinting while sitting at the edge of the bed. Abdomen: Bowel tones present. Soft when lying flat, nontender, distended abdomen with fluid wave present, No hepatosplenomegaly or masses appreciated. Extremities: Mild clubbing in the lower phalanges, cyanosis, edema, or lymphadenopathy appreciated. Skin: Normal temperature, turgor, and texture; no rash, ulcers, or subcutaneous nodules appreciated. Neurological: Cranial nerves grossly intact. Normal muscle strength, tone, and bulk. Reflexes, coordination, and sensory function within normal limits. No known gait impairment. Psychiatric: depressed mood and affect. Alert and oriented to person, place, and time, however does display some memory loss from admission. IVs and Medications Medications Reviewed: Medications were reviewed in detail Lab and Diagnostics Result Diagram: 12/22/1660412/22/16604 Assessment & Plan SBP with Bacteremia - Completed full 5 day course of IV antibiotics. - Repeat blood cultures negative after 48 hours. - Repeat paracentesis planned for 12/22 at 1300 with 4.5 L out. - Cell count and WBC sent shows resolved SBP. - Restrict sodium intake to below 2000 mg daily. Follow up recommendations. - Follow up with regarding TIPS procedure. - Avoid Pleurex drain placement at this time. [place] drain placement after diuretics have failed or you are requiring large volume paracentesis every 5-8 days. - Repeat CMP in 1 weeks time, to check renal function, potassium and sodium. Medication recommendations. - Recommend Ciprofloxacin 500 mg daily, as SBP prophylaxis indefinitely. - Decrease Lasix to 20 mg daily. - Decrease Spironolactone to 50 mg daily. - Titrate Lactulose for 2-3 bowel movements per day. Hepatocellular carcinoma/ Decompensated Cirrhosis Possible Hepatic encephalopathy, Ascites Leukocytosis, resolved. Hyperkalemia. resolved. Hyponatremia, improved. VTE Prophylaxis: SCDs Resuscitation Status: CPR: Attempt Resuscitation Attending Statement Patient seen and examined. Agree with assessment and plan as described by Dr Velasquez. Repeat tap does not show evidence of ongoing infection. Patient will need to f/u with IR at to determine if hepatoma location contraindicates him for TIPS. In the interim, we'll see how he does with lower dose diuretic and sodium restriction. Will repeat tap PRN. BRENDA VELASQUEZ DO Dec 22, 2016 13:43 Jose Cruz Lowry MD Dec 22, 2016 22:33
[2016-12-22 14:18] VITALS: BP 120/74; PULSE 77; RESP 20
--- NOTE | 2016-12-22 14:20 | NUR ---
Paracentesis Patient consented to US guided paracentesis. US staff present to perform. Daughter at bedside. Transient nausea, which resolved without intervention. 4100ml of dark yellow fluid removed. Tolerated procedure without adverse reaction. Cath intact when removed. Bandaid dressing applied. Discomfort in abdomen with palpation. Report given to primary RNKristin.
--- NOTE | 2016-12-22 16:45 | PCM.DIMED ---
Discharge Instructions Date of Service Dec 22, 2016 Dates of Hospitalization Dec 17, 2016 at 15:54 Discharge Diagnosis Discharge Diagnosis Spontaneous Bacterial Peritonitis Hyperkalemia HCC Liver cirrhosis Hyponatremia Diet Discharge Diet: Other (Low sodium diet ) Activity Discharge Activity: Other (Avoid heavy physical work or exertion ) Call your provider Call your provider for: Fever or Chills, Shortness of breath, Bleeding, Chest pain, Vomitting, Excessive diarrhea, Weakness (unilateral), Other (abdominal pain) Patient Instructions Patient Instructions Follow up with PCP, Nurse Healthcare Manager and Oncologist for further evaluation and management of your medical problems. Check potassium level and kidney function 2-3 days after discharge(with PCP or GI specialist. Anupam Coronado MD Dec 22, 2016 16:45
[2016-12-22] MEDS ORDERED: LACT10SO60 PO (16:47)
[2016-12-22] MEDS ORDERED: FURO40TA4 PO (16:47)
[2016-12-22] MEDS ORDERED: CIPR-231 PO (16:47)
[2016-12-22 17:10] VITALS: BP 120/73; PULSE 80; RESP 20; O2SAT 95
--- NOTE | 2016-12-22 17:40 | DRSVH ---
PROCEDURE: US GUIDED PARACENTESIS, PRIMARY ([id number]) INDICATIONS: ASCITES TECHNIQUE: The indications, alternatives, benefits, risks, and complications of the procedure were explained to the patient. Written informed consent was obtained and placed in the chart. The abdomen and pelvis were examined sonographically, and an appropriate site was chosen for paracentesis. The skin was pre pared and draped in the usual sterile fashion, and 1% lidocaine was infiltrated from the skin down th rough the peritoneal surface. A 19-gauge catheter-covered needle was then introduced into the perito isna space, the catheter was advanced and the needle was withdrawn, and thereafter peritoneal fluid w as withdrawn. The catheter was then removed and a dressing was applied. The fluid was discarded if the clinician did not order diagnostic testing of the fluid. The attending physician was present, an d personally performed the procedure. COMPARISON: None. FINDINGS: Access site: Left lower quadrant Needle: One-Step centesis catheter with introducer needle. Fluid volume and description: 4.1 L of clear peritoneal fluid. Fluid sent for diagnostic testing: Fluid sent for cytology, multiple chemistry panels and therapeuti c drainage. Medications: 1% lidocaine for local anaesthesia. Complications: None. IMPRESSION: Successful ultrasound-guided paracentesis. Dictated by: Joon MEI Interpreted: Jessica Davis MD on 12/22/2016 at 15:01 Approved by: Jessica Davis M.D. on 12/22/2016 at 17:38
[2016-12-22 18:07] LABS: BFWBC 126 /mm3
[2016-12-22 18:08] LABS: OTHER CELLS,BODY FLUID 35
[2016-12-22 18:09] LABS: MONOCYTES,BODY FLUID 23 %
--- NOTE | 2016-12-22 18:12 | PCM.PNMED ---
Subjective Date of Service Dec 22, 2016 Exam Vital Signs Vital Sign - Last Date Time Temp Pulse Resp B/P Pulse Ox O2 Delivery O2 Flow Rate FiO2 12/22/16 14:18 77 20 120/74 12/22/16 12:45 36.4 98 Room Air Intake and Output 12/21/16 12/21/16 12/22/16 Cumulative From/Thru 15:00 23:00 07:00 12/17/16 12:54 - 12/22/16 04:39 Intake Total 1000 ml 6613 ml Output Total 150 ml 400 ml Balance 850 ml 6213 ml Intake Oral 600 ml 3070 ml IV Total 400 ml 3543 ml Output Urine Total 150 ml 400 ml # Voids 19 # Bowel Movements 1 Lab and Diagnostics Result Diagram: 12/22/1660412/22/16604 Assessment & Plan Mr. Kostas Winchester is a 66-year-old male with hepatitis C related cirrhosis, complicated by inoperable hepatocellular carcinoma that has recurred since the original diagnosis in 2013. He has developed significant portal hypertension and is now currently being treated for spontaneous bacterial peritonitis. SBP with Bacteremia. Ascites. Hepatocellular carcinoma/ Decompensated Cirrhosis - stable - GI following -repeat blood cultures - no growth Plan -continue IV Antibiotics for now, follow paracentesis labs -repeat paracentesis as needed - IV albumin prn - c/w Lasix PO Hyperkalemia - resoloved after Kayexylate PO + Insulin and D 10 IV Plan - hold Spironolactone for now, c/w Lasix Hyponatremia - stable - follow daily DVT PROPHYLAXIS: SCD Code status: full code Disposition: discharge after patient improves. Plan of care discussed with GI physician; Labs, radiology tests reviewed. VTE Prophylaxis: SCDs Resuscitation Status: CPR: Attempt Resuscitation Anupam Coronado MD Dec 22, 2016 18:12
--- NOTE | 2016-12-22 20:02 | NUR ---
DISCHARGE Discharge paperwork went over with pt and daughter Kym. Paperwork given, medical records given per request put in my daughter. BETZY valdes/c'keisha. All belongings sent home with pt. Addendum: 12/22/16 at 2016 by MARYLU CACERES RN Left at 2009
--- NOTE | 2016-12-23 15:22 | PCM.DC.MED ---
Discharge Summary Date of Service Dec 23, 2016 Dates of Hospitalization Date of Hospital Admission Dec 17, 2016 at 15:54 Date of Discharge: Dec 22, 2016 Providers: Admitting Physician: Anupam Coronado MD Primary Care Physician: Christopher Galeas MD Attending Physician: Anupam Coronado MD Diagnosis at Time of Discharge Diagnosis at Time of Discharge Sepsis present on admission Spontaneous Bacterial Peritonitis Hyperkalemia HCC Liver cirrhosis Hyponatremia Consultations Gastroenterology Procedures XRay, CTs & MRIs PROCEDURE: X-RAY ACUTE ABDOMINAL SERIES ([id number]) INDICATIONS: ASCITES, VOMITING. TECHNIQUE: One view chest and 2 views of the abdomen were acquired. COMPARISON: [facility], CR, XR KUB, 12/20/2016, 11:20. [facility], , CHEST 2 VIEW, 02/25/2016, 13:21. FINDINGS: Surgical Changes and Devices: None. Chest: Lungs are clear. Heart size is normal. No pleural effusions. No pneumoperitoneum. Abdomen: Bowel gas pattern is normal. No suspicious calcifications. Visualized solid organ contours appear normal. Bones: No suspicious bony lesions. IMPRESSION: Normal bowel gas pattern. Increased opacity noted throughout the abdomen, likely associated with scattered ascites. PROCEDURE: US GUIDED PARACENTESIS, PRIMARY ([id number]) INDICATIONS: ASCITES TECHNIQUE: The indications, alternatives, benefits, risks, and complications of the procedure were explained to the patient. Written informed consent was obtained and placed in the chart. The abdomen and pelvis were examined sonographically, and an appropriate site was chosen for paracentesis. The skin was prepared and draped in the usual sterile fashion, and 1% lidocaine was infiltrated from the skin down through the peritoneal surface. A 19-gauge catheter-covered needle was then introduced into the peritoneal space, the catheter was advanced and the needle was withdrawn, and thereafter peritoneal fluid was withdrawn. The catheter was then removed and a dressing was applied. The fluid was discarded if the clinician did not order diagnostic testing of the fluid. The attending physician was present, and personally performed the procedure. COMPARISON: None. FINDINGS: Access site: Left lower quadrant Needle: One-Step centesis catheter with introducer needle. Fluid volume and description: 4.1 L of clear peritoneal fluid. Fluid sent for diagnostic testing: Fluid sent for cytology, multiple chemistry panels and therapeutic drainage. Medications: 1% lidocaine for local anaesthesia. Complications: None. IMPRESSION: Successful ultrasound-guided paracentesis. Hospital Course Patient is 66-year-old male with a past medical history of hepatocellular carcinoma, liver cirrhosis, hepatitis C. Patient presented to the hospital with abdominal pain. The patient had paracentesis and was diagnosed with Sepsis , spontaneous bacterial peritonitis. GI service was consulted. Patient was treated with cefotaxime, IVF. During this hospital stay he was also diagnosed with hyperkalemia which was secondary to spironolactone. Patient was treated with Kayexalate, IV insulin, a IV D 10. Repeat paracentesis showed improving jhon blood cell count in the fluid. Gastroenterology team advised that the patient could go home on ciprofloxacin 500 mg daily for SBP prophylaxis. Patient was seen and examined on the day of discharge. I held his spironolactone on discharge. Patient will follow up with his recycling manager and primary care doctor for further recommendations regarding diuretics, TIPS, permanent peritoneal catheter for peritoneal fluid drain. After patient improved he was discharged home with recommendation to follow up with his PCP, recycling manager for further management of his medical problems. Patient Condition @ Discharge: good Discharge Disposition: home Discharge Activity: resume regular activity, patient was advised to avoid heavy physical work or exertion Discharge Diet: regular diet, heart healthy, low fat, low salt, high fiber Information Provided to Patient: information about discharge medications Discharge Medications: I discussed with patient medication dosage, usage, goals of therapy, side effects, alternatives. During discharge patient was allert, oriented, able to make own informed decisions. We discussed possible severe side effects, adverse reactions, benefits, risks, alternatives of current and newly prescribed medications and diagnostic procedures. Patient verbalized understanding and agreed to current plan of care and discharge. TIME SPENT IN DISCHARGE ACTIVITY: Face to face activity greater then 30 minutes spent in discharge activity. 1. Discussed with patient re: discharge plan of care/treatment, and follow up care/services. 2. Patient agreed with discharge plan and further plan of care, all questions were answered/addressed, no further questions at the time of discharge. Patient agreed with plan of care and discharge. Exam Vital Signs (Last) Date Time Temp Pulse Resp B/P Pulse Ox O2 Delivery O2 Flow Rate FiO2 12/22/16 17:10 36.5 80 20 120/73 95 Room Air Test 12/17/16 13:27 12/17/16 15:23 12/17/16 16:34 12/20/16 09:10 Hold Cho Top Tube Received (Received) Lipase 72U/L (13-60) Urine Color Dark yellow (YELLOW) Urine Appearance Clear (CLEAR,HAZY) Urine pH 5.5 (5.0-8.0) Urine Specific [place] 1.020 (1.003-1.035) Urine Protein Negativemg/dL (NEG,TRACE) Urine Glucose (UA) Negativemg/dL (NEGATIVE) Urine Ketones Negativemg/dL (NEGATIVE) Urine Occult Blood Negative (NEGATIVE) Urine Nitrite Negative (NEGATIVE) Urine Bilirubin Negative (NEGATIVE) Urine Urobilinogen Normalmg/dL (NORMAL) Urine Leukocyte Esterase Negative (NEGATIVE) Urine RBC 0-2/hpf (0-2) Urine WBC 0-5/hpf (0-5) Urine Epithelial Cells Occasional/hpf (NONE-MOD) Urine Crystals Oxalic acid crystals (NONE Urine Bacteria None/hpf (NONE-FEW) Urine Hyaline Casts None/lpf (NONE) Urine Granular Casts None seen (NONE SEEN) Urine Waxy Casts None seen (NONE SEEN) Urine Red Blood Cell Casts None seen (NONE SEEN) Urine White Blood Cell Casts None seen (NONE SEEN) Urine Mucus None seen (None Seen) Urine Trichomonas None seen (NONE SEEN) Urine Yeast None (NONE SEEN) Urinalysis Comment None Urine Culture Reflexed Not indicated Neutrophils (%) (Auto) 85.3% (40-74) Lymphocytes (%) (Auto) 4.1% (14-46) Monocytes (%) (Auto) 7.9% (4-12) Eosinophils (%) (Auto) 1.2% (0-5) Basophils (%) (Auto) 0.2% (0-3) Test 12/20/16 14:56 12/22/16 06:05 12/22/16 14:56 Body Fluid Total Protein 0.8g/dL White Blood Count 10.5th/mm3 (3.8-10.1) Red Blood Count 4.34mil/mm3 (4.40-5.80) Hemoglobin 14.6g/dL (13.8-17.2) Hematocrit 40.8% (41.0-50.0) Mean Corpuscular Volume 94.0fL (81-100) Mean Corpuscular Hemoglobin 33.6pg (27.0-35.0) Mean Corpuscular Hemoglobin Concent 35.8% (32.0-37.0) Red Cell Distribution Width 15.1% (12.3-15.4) Platelet Count 127bil/L (150-400) Prothrombin Time 14.5sec (8.1-12.5) Prothromb Time International Ratio 1.41ratio Sodium Level 127mEq/L (134-144) Potassium Level 5.3mEq/L (3.5-5.2) Chloride Level 91mEq/L (97-108) Carbon Dioxide Level 25mmol/L (18-29) Blood Urea Nitrogen 31mg/dL (8-27) Creatinine 0.78mg/dL (0.76-1.27) Estimat Glomerular Filtration Rate 105mL/min (>59) Glucose Level 102mg/dL (60-99) Calcium Level 9.1mg/dL (8.5-10.1) Total Bilirubin 3.6mg/dL (0.0-1.2) Aspartate Amino Transf (AST/SGOT) 67U/L (0-50) Alanine Aminotransferase (ALT/SGPT) 58U/L (0-44) Alkaline Phosphatase 254U/L (25-160) Total Protein 6.7g/dL (6.4-8.4) Albumin 3.7g/dL (3.4-5.0) Body Fluid Source Peritoneal fluid Body Fluid Color Straw (Clear) Body Fluid Appearance Clear Body Fluid WBC 126/mm3 Body Fluid RBC 375/mm3 Body Fluid Polynuclear WBCs 47% Body Fluid Lymphocytes 30% Body Fluid Monocytes 23% Body Fluid Eosinophils 0% Body Fluid Basophils 0% Discharge Medications Discharge Medications Ciprofloxacin (Cipro) 500 Mg Tablet 500 MG PO DAILY Prescribed by: ROSSANA CONNELLY MD Furosemide (Furosemide) 40 Mg Tablet 20 MG PO QAM Prescribed by: ROSSANA CONNELLY MD Lactulose (Lactulose) 20 Gm/30 Ml Solution 20 GM PO TID Prescribed by: ROSSANA CONNELLY MD As needed Albuterol Sulfate (Ventolin HFA Inhaler) 200 Puff/18 Gm Inhaler 1-2 PUFFS INHALATION QID PRN PRN For Shortness of Breath (Reported) Followup Plan Discharge Diet: Other (Low sodium diet ) Discharge Activity: Other (Avoid heavy physical work or exertion ) Patient Instructions Follow up with PCP, Home Mortgage Disclosure Act Specialist and Oncologist for further evaluation and management of your medical problems. Check potassium level and kidney function 2-3 days after discharge(with PCP or GI specialist. Anupam Coronado MD Dec 23, 2016 15:22
== END 2016-12-22 20:17 | disposition home or self-care (01) | DRG 871 ==
LOC: SED 12:36 → OBSVTOIN 15:54 → MOC 15:54
PROVIDERS: ADMIT Internal Medicine; ATTEND Internal Medicine
PROC: 0W9G3ZX Drainage of Peritoneal Cavity, Percutaneous Approach, Diagnostic (ICD-10-PCS; principal; 2016-12-22)
DX: A41.9 Sepsis, unspecified organism (principal); K65.2 Spontaneous bacterial peritonitis; C22.0 Liver cell carcinoma; R18.0 Malignant ascites; E87.1 Hypo-osmolality and hyponatremia; K76.6 Portal hypertension; B19.20 Unspecified viral hepatitis C without hepatic coma; K72.10 Chronic hepatic failure without coma; Z79.51 Long term (current) use of inhaled steroids; Z87.891 Personal history of nicotine dependence; Z88.0 Allergy status to penicillin